=== PATIENT | male | born 1990 | race African-American/Black ===

== ENCOUNTER 2017-05-04 18:13 | Emergency (ER) | payer SELFPAY ==
[~2017-05-04] VITALS: Ht 175.3 cm; Wt 80.0 kg
[2017-05-04 20:34] LABS: BASOPHILS % 0.6 % (0.0-2.0); HEMATOCRIT. 38.4 % (42.0-52.0); HEMOGLOBIN. 13.3 g/dL (14.0-18.0); LYMPHOCYTES % 39.8 % (20.0-50.0); MEAN CORPUSCULAR HEMOGLOBIN 32.3 pg (28.0-32.0); MEAN CORPUSCULAR VOLUME 93.5 fL (80.0-94.0); MEAN PLATELET VOLUME 7.7 fl (7.4-10.4); MONOCYTES % 7.5 % (2.0-8.0); NEUTROPHILS % 50.1 % (40.0-76.0); PLATELET 206 x1000/uL (130-400); RED BLOOD CELL COUNT 4.11 mill/uL (4.7-6.1); RED CELL DISTRIBUTION WIDTH 14.4 % (11.6-14.6)
[2017-05-04 20:36] LABS: INR 1.1; PROTHROMBIN TIME 11.2 sec (9.4-11.6)
[2017-05-04 20:40] LABS: AMMONIA 42 uMol/L (<32)
[2017-05-04 20:41] LABS: CHLORIDE 108 mEq/L (98-107)
[2017-05-04 20:44] LABS: CARBON DIOXIDE 30 mEq/L (21-32)
[2017-05-04 20:45] LABS: ETHANOL BLOOD < 10 mg/dL
[2017-05-04 20:49] LABS: CREATINE KINASE 140 IU/L (39-308); TROPONIN I < 0.02 ng/mL (0.00-0.04)
[2017-05-04 20:51] LABS: PHENOBARBITAL < 2.1 ug/mL (15.0-40.0); VALPROIC ACID < 3.0 ug/mL (50-100)
[2017-05-04 20:57] LABS: CARBAMAZEPINE < 0.5 ug/mL (4-12)
[2017-05-04 22:50] LABS: CLARITY URINE CLEAR (CLEAR); COLOR URINE DARK YELLOW (YELLOW); GLUCOSE URINE NEGATIVE (NEGATIVE); KETONES URINE TRACE (NEGATIVE); LEUKOCYTE ESTERASE URINE 1+ (NEGATIVE); NITRITE URINE NEGATIVE (NEGATIVE); OCCULT BLOOD URINE 3+ (NEGATIVE); PH URINE 5.5 (4.5-8.0); PROTEIN URINE NEGATIVE (NEGATIVE); SPECIFIC GRAVITY URINE 1.031 (1.005-1.030)
[2017-05-04 23:02] LABS: *AMPHETAMINES SCREEN URINE NEGATIVE (NEGATIVE); *BARBITURATES SCREEN URINE NEGATIVE (NEGATIVE); *BENZODIAZEPINES SCREEN URINE NEGATIVE (NEGATIVE); *COCAINE SCREEN URINE NEGATIVE (NEGATIVE); CANNABINOID URINE SCREEN PRESUMTIVE POSITIVE (NEGATIVE); METHADONE URINE SCREEN NEGATIVE (NEGATIVE); OPIATES URINE SCREEN NEGATIVE (NEGATIVE); PHENCYCLIDINE URINE SCREEN NEGATIVE (NEGATIVE)
[2017-05-05 01:40] VITALS: BP 125/60
== END 2017-05-05 01:50 | disposition home or self-care (01) ==
LOC: ER 18:13 → EDBD 18:13 → ER 05-05 01:50 → CANRESERV 05-05 02:11 → ENRESERV 05-05 02:11 → CANBEDREQ 05-06 00:20
DX: R41.82 Altered mental status, unspecified (principal); R79.1 Abnormal coagulation profile
CPT/HCPCS: 36415; 51702; 70450; 71010; 80053; 80156; 80165; 80184; 80185; 80305; 81001; 82140; 82550; 82962; 83605; 83880; 84443; 84484; 85025; 85610; 86850; 86900; 86901; 93005; 99285; G0482; Z7610; A4315

== ENCOUNTER 2018-10-22 21:43 | Emergency (ER) | payer SELFPAY ==
[~2018-10-22] VITALS: Ht 172.7 cm; Wt 75.0 kg
[2018-10-22] MEDS ORDERED: FOLIC ACID 1 MG, THIAMINE HCL 100 MG, MVI, ADULT NO.1 10 ML in DEXTROSE 5% WATER 1,000 ML IV ONE ×4 (22:15)
[2018-10-22 23:15] LABS: BASOPHILS % 0.7 % (0.0-2.0); EOSINOPHILS % 0.7 % (0.0-5.0); HEMATOCRIT. 36.6 % (42.0-52.0); HEMOGLOBIN. 12.2 g/dL (14.0-18.0); LYMPHOCYTES % 21.3 % (20.0-50.0); MEAN CORPUSCULAR HEMOGLOBIN 31.3 pg (28.0-32.0); MEAN PLATELET VOLUME 8.3 fl (7.4-10.4); MONOCYTES % 10.4 % (2.0-8.0); NEUTROPHILS % 66.9 % (40.0-76.0); PLATELET 210 x1000/uL (130-400); RED BLOOD CELL COUNT 3.89 mill/uL (4.7-6.1); RED CELL DISTRIBUTION WIDTH 13.3 % (11.6-14.6)
[2018-10-22 23:17] LABS: CHLORIDE 108 mEq/L (98-107)
[2018-10-22 23:20] LABS: ETHANOL BLOOD < 10 mg/dL
[2018-10-22 23:25] LABS: CREATINE KINASE 372 IU/L (39-308)
[2018-10-23] MEDS ORDERED: KETOROLAC 15MG/ML VIAL IV ONE (01:30)
[2018-10-23] MEDS ORDERED: SODIUM CHLORIDE 0.9% 1,000 ML IV ONE (01:30)
[2018-10-23] MEDS ORDERED: DEXAMETHASONE 4MG/ML 1ML VIAL IV ONE (01:30)
[2018-10-23 05:51] LABS: CLARITY URINE CLOUDY (CLEAR); COLOR URINE DARK YELLOW (YELLOW); KETONES URINE NEGATIVE (NEGATIVE); LEUKOCYTE ESTERASE URINE 2+ (NEGATIVE); NITRITE URINE NEGATIVE (NEGATIVE); OCCULT BLOOD URINE 3+ (NEGATIVE); PROTEIN URINE TRACE (NEGATIVE); SPECIFIC GRAVITY URINE 1.031 (1.005-1.030)
[2018-10-23 06:07] VITALS: BP 122/84
[2018-10-23 06:15] LABS: *BARBITURATES SCREEN URINE NEGATIVE (NEGATIVE); *BENZODIAZEPINES SCREEN URINE NEGATIVE (NEGATIVE)
[2018-10-23 06:16] LABS: *AMPHETAMINES SCREEN URINE NEGATIVE (NEGATIVE); *COCAINE SCREEN URINE NEGATIVE (NEGATIVE); CANNABINOID URINE SCREEN PRESUMTIVE POSITIVE (NEGATIVE); METHADONE URINE SCREEN NEGATIVE (NEGATIVE); OPIATES URINE SCREEN NEGATIVE (NEGATIVE); PHENCYCLIDINE URINE SCREEN NEGATIVE (NEGATIVE)
== END 2018-10-23 06:08 | disposition home or self-care (01) ==
LOC: ER 21:48
DX: R41.82 Altered mental status, unspecified (principal); Z59.0 Homelessness; F10.21 Alcohol dependence, in remission; Z87.898 Personal history of other specified conditions
CPT/HCPCS: 36415; 70450; 71045; 80053; 80305; 80307; 80320; 80329; 81003; 82550; 82962; 83690; 83735; 84443; 84484; 85025; 87086; 93005; 96365; 96366; 99284; J3411; J3490; J7030; J7070; Z7610; G0480

== ENCOUNTER 2018-10-26 21:04 | Emergency (ER) | payer SELFPAY ==
[~2018-10-26] VITALS: Ht 182.9 cm; Wt 70.0 kg
[2018-10-27] MEDS ORDERED: AZITHROMYCIN 500 MG TABLET PO ONE
[2018-10-27] MEDS ORDERED: CEFTRIAXONE SODIUM 250 MG/VIAL IM ONE
[2018-10-27 01:30] VITALS: BP 107/55
== END 2018-10-27 03:05 | disposition home or self-care (01) ==
LOC: ER 21:04
DX: F10.129 Alcohol abuse with intoxication, unspecified (principal); F19.129 Other psychoactive substance abuse with intoxication, unspecified; Y90.9 Presence of alcohol in blood, level not specified
CPT/HCPCS: 36415; 80320; 96372; 99283; J0696; G0480